=== PATIENT | male | born 1970 | race Two or more races ===

== ENCOUNTER 2016-11-25 12:08 | Day surgery (SDC) | payer MEDICAID ==
[2016-11-25] MEDS ORDERED: NS 1,000 ML IV SCH (12:45)
[2016-11-25] MEDS ORDERED: fentaNYL 100 MCG/2 ML INJ ONE (13:59)
[2016-11-25] MEDS ORDERED: MIDAZOLAM 2 MG/2 ML VIAL ONE (13:59)
[2016-11-25] MEDS ORDERED: IOPAMIDOL (ISOVUE-M 300) 15 ML VIAL IV ONE (14:25)
[2016-11-25] MEDS ORDERED: BUPIVACAINE 0.5% 30 ML SDV ONE (14:25)
[2016-11-25] MEDS ORDERED: DEPO METHYLPREDNISOLONE 40 MG/ML SDV ONE (14:26)
[2016-11-25] MEDS ORDERED: DEPO METHYLPREDNISOLONE 80 MG/ML SDV ONE (14:26)
== END 2016-11-25 15:35 | disposition home or self-care (01) ==
LOC: FIMAGING 12:08
PROVIDERS: ATTEND Neurological Surgery
PROC: 3E0U3NZ Introduction of Analgesics, Hypnotics, Sedatives into Joints, Percutaneous Approach (ICD-10-PCS; principal; 2016-11-25 14:30)
DX: M54.5 Low back pain (principal); M79.606 Pain in leg, unspecified
CPT/HCPCS: J1020; J2250; J3010; Q9967

== ENCOUNTER 2017-04-28 11:53 | Day surgery (SDC) | payer MEDICAID ==
[2017-04-28] MEDS ORDERED: NS 1,000 ML IV SCH ×2 (12:45→14:30)
[2017-04-28] MEDS ORDERED: MIDAZOLAM 2 MG/2 ML VIAL ONE (12:54)
[2017-04-28] MEDS ORDERED: fentaNYL 100 MCG/2 ML INJ ONE (12:54)
[2017-04-28] MEDS ORDERED: IOPAMIDOL (ISOVUE-M 300) 15 ML VIAL ONE (13:31)
[2017-04-28] MEDS ORDERED: DEPO METHYLPREDNISOLONE 40 MG/ML SDV ONE (13:31)
[2017-04-28] MEDS ORDERED: BUPIVACAINE 0.5% 30 ML SDV ONE (13:31)
[2017-04-28] MEDS ORDERED: DEPO METHYLPREDNISOLONE 80 MG/ML SDV ONE (13:32)
[2017-04-28] MEDS ORDERED: LIDOCAINE 1% 300 MG/30 ML SDV ONE (13:32)
[2017-04-28] MEDS ORDERED: ONDANSETRON DISINTEGRATING 4 MG TAB PO PRN (14:15)
[2017-04-28] MEDS ORDERED: ONDANSETRON 4 MG/2 ML VIAL IVP PRN (14:17)
== END 2017-04-28 14:55 | disposition home health service (06) ==
LOC: FIMAGING 11:53
PROVIDERS: ATTEND Physician Assistant Surgical
PROC: 3E0T3BZ Introduction of Anesthetic Agent into Peripheral Nerves and Plexi, Percutaneous Approach (ICD-10-PCS; principal; 2017-04-28 13:50)
PROC: 3E0T33Z Introduction of Anti-inflammatory into Peripheral Nerves and Plexi, Percutaneous Approach (ICD-10-PCS; principal; 2017-04-28 13:50)
DX: M54.5 Low back pain (principal); M54.42 Lumbago with sciatica, left side
CPT/HCPCS: J1030; J1040; J2250; J3010; Q9967

== ENCOUNTER 2017-09-12 11:58 | Day surgery (SDC) | payer MEDICAID ==
[2017-09-12] MEDS ORDERED: GLUCAGON HCL 1 MG VIAL IVP PRN (12:23)
[2017-09-12] MEDS ORDERED: ALTEPLASE 2 MG VIAL IVP PRN (12:23)
[2017-09-12] MEDS ORDERED: MIDAZOLAM 2 MG/2 ML VIAL IVP PRN (12:23)
[2017-09-12] MEDS ORDERED: PROTAMINE SULFATE 50 MG/5 ML VIAL IVP PRN (12:23)
[2017-09-12] MEDS ORDERED: NALOXONE HCL 0.4 MG/ML INJ IVP PRN (12:23)
[2017-09-12] MEDS ORDERED: MEPERIDINE 25 MG/ML SYR IVP PRN (12:23)
[2017-09-12] MEDS ORDERED: FLUMAZENIL 0.5 MG/5 ML MDV IVP PRN (12:23)
[2017-09-12] MEDS ORDERED: fentaNYL 100 MCG/2 ML INJ IVP PRN (12:23)
[2017-09-12] MEDS ORDERED: HEPARIN 10,000 UNIT/10 ML MDV IVP PRN (12:23)
[2017-09-12] MEDS ORDERED: NS 1,000 ML IV SCH (12:30)
--- NOTE | 2017-09-12 13:29 | PDGENHP ---
History & Physical Chief Complaint: Recurrent low back pain History of Present Illness: Benefited 3-4 months from last facet injections of April 2017. Pain has recurred in the same location. Pertinent Past, Social, Family History: Asthma. No allergies. Relevant Physical Exam: Lungs: clear to auscultation. Heart: RRR. No murmur. 92 bpm.
--- NOTE | 2017-09-12 13:31 | PDPROPOC ---
Sedation Plan of Care Sedation Plan of Care: vital signs stable, mental status noted, patient educated of risks, benefits, alternatives, patient can tolerate sedation ASA Classification: ASA 2 Planned drugs: fentanyl, midazolam Mallampati Score: Class 1 Mallampati Reference Image: Patient passed 3-3-2 rule?: Yes
[2017-09-12] MEDS ORDERED: LIDOCAINE 1% 300 MG/30 ML SDV ONE (14:23)
[2017-09-12] MEDS ORDERED: TRIAMCINOLONE ACETONIDE 200 MG/5 ML MDV IM ONE (14:24)
[2017-09-12] MEDS ORDERED: BUPIVACAINE 0.5% 30 ML SDV ONE (14:41)
[2017-09-12] MEDS ORDERED: DEPO METHYLPREDNISOLONE 80 MG/ML SDV ONE (14:42)
[2017-09-12 15:09] VITALS: PULSE 88; RESP 16; TEMP 97.3
[2017-09-12 16:04] VITALS: BP 118/82; O2SAT 95
== END 2017-09-12 16:05 | disposition home or self-care (01) ==
LOC: FIMAGING 11:58
PROVIDERS: ATTEND Radiology Diagnostic Radiology
DX: M54.42 Lumbago with sciatica, left side (principal); J45.909 Unspecified asthma, uncomplicated
CPT/HCPCS: J1040; J2250; J2310; J3010; J3301

== ENCOUNTER 2018-01-21 12:08 | Day surgery (SDC) | payer MEDICAID ==
[2018-01-21] MEDS ORDERED: ALTEPLASE 2 MG VIAL IVP PRN (12:25)
[2018-01-21] MEDS ORDERED: MEPERIDINE 25 MG/ML SYR IVP PRN (12:25)
[2018-01-21] MEDS ORDERED: HEPARIN 10,000 UNIT/10 ML MDV (1,000 UNIT/ML) IVP PRN (12:25)
[2018-01-21] MEDS ORDERED: GLUCAGON HCL 1 MG VIAL IVP PRN (12:25)
[2018-01-21] MEDS ORDERED: PROTAMINE SULFATE 50 MG/5 ML VIAL IVP PRN (12:25)
[2018-01-21] MEDS ORDERED: FLUMAZENIL 0.5 MG/5 ML MDV IVP PRN (12:25)
[2018-01-21] MEDS ORDERED: fentaNYL 100 MCG/2 ML INJ IVP PRN (12:25)
[2018-01-21] MEDS ORDERED: MIDAZOLAM 2 MG/2 ML VIAL IVP PRN (12:25)
[2018-01-21] MEDS ORDERED: NALOXONE HCL 0.4 MG/ML INJ IVP PRN (12:25)
[2018-01-21] MEDS ORDERED: NS 1,000 ML IV SCH (12:30)
--- NOTE | 2018-01-21 13:59 | PDPROPOC ---
Sedation Plan of Care Sedation Plan of Care: vital signs stable, mental status noted, patient educated of risks, benefits, alternatives, patient can tolerate sedation ASA Classification: ASA 1 Planned drugs: fentanyl, midazolam Mallampati Score: Class 2 Mallampati Reference Image: Patient passed 3-3-2 rule?: Yes
[2018-01-21] MEDS ORDERED: NALOXONE HCL 0.4 MG/ML INJ ONE (14:01)
[2018-01-21] MEDS ORDERED: MIDAZOLAM 2 MG/2 ML VIAL ONE ×2 (14:01→14:20)
[2018-01-21] MEDS ORDERED: FLUMAZENIL 0.5 MG/5 ML MDV IVP ONE (14:02)
[2018-01-21] MEDS ORDERED: fentaNYL 100 MCG/2 ML INJ ONE ×2 (14:02→14:20)
--- NOTE | 2018-01-21 14:10 | PDGENHP ---
History & Physical Chief Complaint: RECURRENT BACK PAIN History of Present Illness: PREVIOUS INJECTIONS ALL HELPED. Pertinent Past, Social, Family History: N/A Relevant Physical Exam: IN NO SIGNIFICANT DISTRESS Cardiorespiratory Assessment: RRR, CTA.
[2018-01-21] MEDS ORDERED: DEPO METHYLPREDNISOLONE 40 MG/ML SDV ONE (14:25)
[2018-01-21] MEDS ORDERED: LIDOCAINE 1% 300 MG/30 ML SDV ONE (14:25)
[2018-01-21] MEDS ORDERED: DEPO METHYLPREDNISOLONE 80 MG/ML SDV ONE (14:25)
[2018-01-21] MEDS ORDERED: IOPAMIDOL (ISOVUE-M 300) 15 ML VIAL ONE (14:26)
[2018-01-21] MEDS ORDERED: BUPIVACAINE 0.5% 30 ML SDV ONE (14:26)
[2018-01-21 14:56] VITALS: BP 122/86
[2018-01-21] MEDS ORDERED: ONDANSETRON 4 MG/2 ML VIAL IVP PRN (15:01)
== END 2018-01-21 15:45 | disposition home or self-care (01) ==
LOC: FIMAGING 12:08
PROVIDERS: ATTEND Radiology Diagnostic Radiology
DX: M54.42 Lumbago with sciatica, left side (principal)
CPT/HCPCS: J1030; J1040; J2250; J2310; J3010; Q9967